=== PATIENT | female | born 1985 | race Caucasian/White ===

== ENCOUNTER → 2022-05-14 | Outpatient (RCR) | payer OTHER ==
[~2022-05-14] VITALS: Ht 170.2 cm; Wt 116.0 kg
[~2022-05-14] MED LIST: GLUCOPHAGE500 MG/TAB PO; QUALITY CHOICE1 TA7 PO; VITAMIN D250 MCG PO
[2022-05-14 11:10] VITALS: BP 124/85; PULSE 73; TEMP 97.9
== END | disposition home or self-care (01) ==
LOC: EUO
DX: D50.9 Iron deficiency anemia, unspecified (principal)
CPT/HCPCS: J1756; J7050

== ENCOUNTER 2022-05-30 10:00 | Outpatient (RCR) | payer OTHER ==
[2022-05-16 11:51] VITALS: BP 127/88; PULSE 70; TEMP 97.9
[~2022-05-30] VITALS: Ht 170.2 cm; Wt 116.0 kg
[2022-05-30 10:00] VITALS: BP 125/80; BP 138/90; PULSE 72; PULSE 91; TEMP 97.8; TEMP 98.4
== END 2022-05-30 18:27 | disposition still patient (30) ==
LOC: EUO 10:00
DX: D50.9 Iron deficiency anemia, unspecified (principal)
CPT/HCPCS: J1756; J7050